=== PATIENT | female | born 1945 | race Caucasian/White ===

== ENCOUNTER → 2020-04-11 09:00 | Outpatient (CLI) | payer MEDICARE, SELFPAY | PROVIDERS: Referring Provider Physician Assistant; Visit Provider Physician Assistant | DX: Z20.822 Contact with and (suspected) exposure to COVID-19 (principal) | CPT/HCPCS: 87635; C9803 ==

== ENCOUNTER 2020-04-12 06:50 | Day surgery (SDC) | payer MEDICARE, SELFPAY ==
[2020-04-11 11:09] LABS: COVID19 -Nasal RAPID Negative (Negative)
[2020-04-12] MEDS: PROPARACAINE 0.5% OPHTH SOL 2 DROPS EYE-OP (07:42)
[2020-04-12 07:43] VITALS: BP 151/82; PULSE 65; RESP 14; TEMP 36.3; O2SAT 99; BMI 29.7
[2020-04-12] MEDS: CATARACT EYE COMPOUND (10 DROPS/SYRINGE) 3 DROPS EYE-OP (07:53)
--- NOTE | 2020-04-12 08:03 | PM.PREOP ---
Pre-operative Note Interval Note History & Physical reviewed/Exam performed by Physician: Yes Changes to H&P: No
--- NOTE | 2020-04-12 08:03 | PM.OP.1 ---
Operative Date/Time/Diagnoses Pre-op diagnosis: Nuclear cataract right eye Procedure & Clinicians Procedure: Cataract Surgery Same procedure as scheduled: Yes Surgeon: Nii Carlisle Anesthesia Type: MAC +/- and Sedation Operative Notes Procedure in detail: Patient brought to the operating suite. Tetracaine drops placed in the right eye. Patient was prepped and draped in sterile manner. Wire lid speculum was placed in the eye. Betadine drops were placed on the eye. This was irrigated. Lidocaine jelly was placed on the eye. A paracentesis port was created with a side-port blade. 0.1 mL 1% preservative free lidocaine was injected into the anterior chamber. The anterior chamber was deepened with viscoelastic. 2.6 mm keratome was used to create a temporal clear corneal incision. Cystotome and Utrata forceps were used to create continuous tear capsulorrhexis. Balanced salt solution was used to hydro dissect the nucleus. The phacoemulsification handpiece was inserted and the nucleus was removed using the stop and chop technique. The irrigation aspiration handpiece was inserted and the remaining cortex was removed. Anterior chamber was deepened with viscoelastic. An Velazquez ZCB00 intraocular lens with a power of 20.0 was injected into the capsular bag. Irrigation aspiration handpiece was inserted and the remaining viscoelastic was removed. Incision was hydrated with balanced salt solution and found to be leak free with pressure with Weck-Jana sponges. 0.1 mL Vigamox injected anterior chamber. 0.3 mL Kenalog 10 mg was injected subconjunctivally. Lid speculum was removed. The patient left the operating room in excellent condition. Complications: none Post-operative Condition: stable Disposition: same day surgery
[2020-04-12] MEDS: MOXIFLOXACIN INJ 5 MG/ML VIAL EYE-OP (08:23)
[2020-04-12] MEDS: PHENYLEPHRINE/LIDOCAINE VIAL (OR) 0.2 ML EYE-OP (08:23)
[2020-04-12] MEDS: CHONDROIDTIN/SOD HYALURONATE 1.05 ML SYRINGE INTRAOCULA (08:23)
[2020-04-12] MEDS: TRIAMCINOLONE 50 MG/5 ML VIAL INJ (08:23)
[2020-04-12] MEDS: TETRACAINE 0.5% OPHTH DROPS 4 ML 2 DROPS EYE-OP (08:24)
[2020-04-12] MEDS: BALANCED SALT IRRIG SOLN NO.2 500 ML, EPINEPHrine 1 MG IRR (08:24)
[2020-04-12] MEDS: LIDOCAINE JELLY 2% 5 ML 1 APPLIC TOP (08:24)
[2020-04-12 08:46] VITALS: BP 129/69; PULSE 57; RESP 16; TEMP 36.6; O2SAT 100
== END 2020-04-12 08:48 | disposition home or self-care (01) ==
PROVIDERS: Referring Provider Ophthalmology; Visit Provider Ophthalmology
PROC: (CPT 66984; principal; 2020-04-12 08:15)
DX: H25.11 Age-related nuclear cataract, right eye (principal); I10 Essential (primary) hypertension; E11.9 Type 2 diabetes mellitus without complications; Z79.84 Long term (current) use of oral hypoglycemic drugs
CPT/HCPCS: 66984; J0171; J2250; J3301

== ENCOUNTER → 2020-04-25 10:07 | Outpatient (CLI) | payer MEDICARE, SELFPAY ==
[2020-04-25 10:58] LABS: COVID19 -Nasal RAPID Negative (Negative)
== END ==
PROVIDERS: Visit Provider Physician Assistant
DX: Z01.812 Encounter for preprocedural laboratory examination (principal); Z20.822 Contact with and (suspected) exposure to COVID-19
CPT/HCPCS: 87635; C9803

== ENCOUNTER 2020-04-26 08:09 | Day surgery (SDC) | payer MEDICARE, SELFPAY ==
[2020-04-26 08:49] VITALS: BP 143/80; PULSE 58; RESP 13; TEMP 36.9; O2SAT 98; BMI 29.7
[2020-04-26] MEDS: PROPARACAINE 0.5% OPHTH SOL 2 DROPS EYE-OP (09:13)
[2020-04-26] MEDS: CATARACT EYE COMPOUND (10 DROPS/SYRINGE) 3 DROPS EYE-OP (09:14)
--- NOTE | 2020-04-26 10:17 | P.OP_ITS ---
Operative Date/Time/Diagnoses Pre-op diagnosis: Nuclear Cataract Left eye Post-op diagnosis: same Procedure & Clinicians Same procedure as scheduled: Yes Surgeon: Nii Carlisle Anesthesia Type: MAC +/- and Sedation Operative Notes Procedure in detail: Patient brought to the operating suite. Tetracaine drops placed in the left eye. Patient was prepped and draped in sterile manner. Wire lid speculum was placed in the eye. Betadine drops were placed on the eye. This was irrigated. Lidocaine jelly was placed on the eye. A paracentesis port was created with a side-port blade. 0.1 mL 1% preservative free lidocaine was injected into the anterior chamber. The anterior chamber was deepened with viscoelastic. 2.6 mm keratome was used to create a temporal clear corneal incision. Cystotome and Utrata forceps were used to create continuous tear capsulorrhexis. Balanced salt solution was used to hydro dissect the nucleus. The phacoemulsification handpiece was inserted and the nucleus was removed using the stop and chop technique. The irrigation aspiration handpiece was inserted and the remaining cortex was removed. Anterior chamber was deepened with viscoe lastic. An Velazquez ZCB00 intraocular lens with a power of 21.5 was injected into the capsular bag. Irrigation aspiration handpiece was inserted and the remaining viscoelastic was removed. Incision was hydrated with balanced salt solution and found to be leak free with pressure with Weck-Jana sponges. 0.1 mL Vigamox injected anterior chamber. 0.3 mL Kenalog 10 mg was injected subconjunctivally. Lid speculum was removed. The patient left the operating room in excellent condition. Complications: none Post-operative Condition: stable Disposition: same day surgery
--- NOTE | 2020-04-26 10:17 | PM.PREOP ---
Pre-operative Note Interval Note History & Physical reviewed/Exam performed by Physician: Yes Changes to H&P: No
[2020-04-26] MEDS: TRIAMCINOLONE 50 MG/5 ML VIAL INJ (10:35)
[2020-04-26] MEDS: LIDOCAINE JELLY 2% 5 ML 1 APPLIC TOP (10:35)
[2020-04-26] MEDS: CHONDROIDTIN/SOD HYALURONATE 1.05 ML SYRINGE INTRAOCULA (10:36)
[2020-04-26] MEDS: PHENYLEPHRINE/LIDOCAINE VIAL (OR) 0.2 ML EYE-OP (10:36)
[2020-04-26] MEDS: MOXIFLOXACIN INJ 5 MG/ML VIAL EYE-OP (10:36)
[2020-04-26] MEDS: BALANCED SALT IRRIG SOLN NO.2 500 ML, EPINEPHrine 1 MG IRR (10:37)
[2020-04-26] MEDS: TETRACAINE 0.5% OPHTH DROPS 4 ML 2 DROPS EYE-OP (10:37)
[2020-04-26 10:54] VITALS: BP 110/74; PULSE 63; RESP 12; TEMP 36.3; O2SAT 97
== END 2020-04-26 11:09 | disposition home or self-care (01) ==
LOC: OR 08:17
PROVIDERS: Referring Provider Ophthalmology; Visit Provider Ophthalmology
PROC: (CPT 66984; principal; 2020-04-26 10:15)
DX: H25.12 Age-related nuclear cataract, left eye (principal); E11.9 Type 2 diabetes mellitus without complications; I10 Essential (primary) hypertension; Z79.4 Long term (current) use of insulin; E78.00 Pure hypercholesterolemia, unspecified; F41.9 Anxiety disorder, unspecified
CPT/HCPCS: 66984; J0171; J2250; J3010; J3301

== ENCOUNTER 2022-10-30 11:34 | Day surgery (SDC) | payer MEDICARE, SELFPAY ==
[2022-10-30 12:04] VITALS: BMI 29.3
[2022-10-30 12:16] VITALS: BP 184/95; PULSE 70; RESP 16; TEMP 36.5; O2SAT 97
[2022-10-30] MEDS: LACTATED RINGERS 1,000 ML 200 ML IV (12:29)
--- NOTE | 2022-10-30 12:50 | P.HP_ITS ---
History of Present Illness History of Present Illness Date Patient Seen: 10/30/22 Time Patient Seen: 12:50 Chief complaint: SDC Narrative: 77-year-old woman here for screening colonoscopy. Personal history of colonic polyps. Last colonoscopy 5 years ago. Several distant family members with a history of colon cancer no first-degree relatives. COUNT INCLUDES THE [facility] Social History household members: spouse Smoking Status: Former smoker alcohol intake: never Meds Home Medications and Allergies Home Medications Medication Instructions Recorded Confirmed Type alprazolam 0.5 mg tablet 0.5 mg PO BEDTIME PRN Anxiety 04/12/20 10/30/22 History cetirizine 10 mg tablet (Zyrtec) 5 mg PO DAILY PRN Allergy Symptoms 04/12/20 10/30/22 History lisinopril 40 mg tablet 40 mg PO DAILY 04/12/20 10/30/22 History metformin 1,000 mg tablet 1,000 mg PO BID diabetes 04/12/20 10/30/22 History multivitamin-ferrous 1 tab PO DAILY 04/12/20 10/30/22 History fumarate-folic acid 18 mg-400 mcg tablet (Centrum) aspirin 81 mg tablet,delayed 81 mg PO DAILY 04/26/20 10/30/22 History release amlodipine 5 mg tablet 5 mg PO DAILY blood pressure 10/30/22 10/30/22 History cholecalciferol (vitamin D3) 25 75 mcg PO DAILY 10/30/22 10/30/22 History mcg (1,000 unit) capsule (Vitamin D3) cyanocobalamin (vitamin B-12) 500 500 mcg PO DAILY 10/30/22 10/30/22 History mcg tablet (Vitamin B-12) fluticasone propionate 50 2 spray intranasal DAILY 10/30/22 10/30/22 History mcg/actuation nasal spray,suspension rosuvastatin 10 mg tablet 10 mg PO DAILY 10/30/22 10/30/22 History Allergies Allergy/AdvReac Type Severity Reaction Status Date / Time No Known Drug Allergies Allergy Verified 10/30/22 11:56 Exam Vital Signs (past 8 hours): - 10/30/22 12:16 Temperature 97.7 F Pulse Rate 70 Respiratory Rate 16 Blood Pressure 184/95 H Pulse Oximetry 97 Oxygen Delivery Method Room Air Oxygen Delivery Method Room Air Narrative Exam Narrative: General adult woman alert oriented no acute distress Abdomen soft nontender nondistended Assessment & Plan Assessment and plan (1) Personal history of colonic polyps: Status: Acute Assessment & Plan narrative: The patient requires colorectal screening and colonoscopy is recommended. Technical details were discussed. Risks, benefits, alternatives explained. Risks including but not limited to myocardial infarction, aspiration, bleeding, pain, missed lesion, incomplete examination, need for further radiographic studies, colonic perforation, and need for major abdominal surgery were discussed. All questions were answered to their satisfaction, and they are in agreement with this plan.
--- NOTE | 2022-10-30 12:52 | PM.OP.COLON ---
Operative Date/Time/Diagnoses Date of procedure: 10/30/22 Time of procedure: 12:52 Pre-op diagnosis: Personal history of colonic polyps Post-op diagnosis: same Procedure & Clinicians Study performed: Colonoscopy Indications: Colorectal screening. Personal history of colonic polyps. Procedure Notes Procedure in detail: The history and physical was performed/updated and the patient is ASA class is 2. The procedure was discussed in detail with the patient. Potential risks complications including infection, bleeding, missed diagnosis, perforation, need for surgery, and were explained. Their questions were answered and informed consent was obtained. Patient was brought to the procedure room and placed standard monitoring equipment. The patient's vital signs were monitored continuously throughout the entire procedure. Prior to starting time-out was performed. The patient was placed in the left lateral recumbent position. Procedural sedation was administered by anesthesia. Examination began with a thorough inspection of the perianal area there was no evidence of fissures, fistulae, external hemorrhoids or cutaneous malignancy. The colonoscopy scope was then placed into the anal canal and was advanced to the cecum, which was identified by the ileocecal valve, the appendiceal orifice and the confluence of the taenia. The scope was then slowly withdrawn examining colon thoroughly in all directions, irrigating it of any residual stool. No masses or polyps. Diverticulosis of the sigmoid colon. The patient tolerated the procedure well. They will be discharged once criteria are met. The prep was of fair quality. The withdrawl time was 6 minutes. Specimen(s): none sent Impression: Normal colonoscopy Post-procedure Plan for aftercare: No need for further colonoscopy unless symptomatic Disposition: same day surgery
[2022-10-30 13:25] VITALS: BP 109/53; PULSE 63; RESP 13; O2SAT 93
[2022-10-30 13:31] VITALS: BP 117/60; PULSE 62; RESP 14; O2SAT 95
[2022-10-30 13:37] VITALS: BP 122/65; PULSE 62; RESP 14; O2SAT 94
[2022-10-30 13:49] VITALS: BP 129/76; PULSE 56; RESP 17; TEMP 36.2; O2SAT 99
== END 2022-10-30 13:56 | disposition home or self-care (01) ==
PROVIDERS: PCP Nurse Practitioner Family; Referring Provider Surgery; Visit Provider Surgery
PROC: 0DJD8ZZ Inspection of Lower Intestinal Tract, Via Natural or Artificial Opening Endoscopic (ICD-10-PCS; CPT 45378; principal; 2022-10-30 12:45)
DX: Z12.11 Encounter for screening for malignant neoplasm of colon (principal); Z86.010 Personal history of colon polyps; K57.30 Diverticulosis of large intestine without perforation or abscess without bleeding
CPT/HCPCS: G0105; J2704; J3010